=== PATIENT | female | born 1925 | race Caucasian/White ===

== ENCOUNTER 2017-01-03 13:18 | Emergency (ER) | payer OTHER, MEDICARE ==
[2017-01-03 13:30] VITALS: BP 156/69; PULSE 87; TEMP 97.5; BMI 22.3
--- NOTE | 2017-01-03 15:51 | PDOC ---
History of Present Illness - General Chief Complaint: Injury Stated Complaint: FALL/ LACERATION TO NOSE Time Seen by Provider: 01/03/17 14:00 - History of Present Illness Initial Comments: 01/03/17 15:45 CHIEF COMPLAINT: laceration to nose s/p fall HISTORY OF PRESENT ILLNESS: 89 yo F with hx of HTN, hyperthyroidism and parathyroidism presents to fast track with laceration to bridge of nose s/p fall earlier this afternoon. Patient states she tripped on even cement and hit her face. She denies any LOC, dizziness, headache, blurry vision, difficulty speaking or swallowing, and states "I feel just fine, a young man saw me fall and drove me here, but I stopped at home and put away groceries first." No recent travel or sick contacts. PAST MEDICAL HISTORY: as per HPI FAMILY HISTORY: Denies SOCIAL HISTORY: Denies tobacco, alcohol, illicit drug use. ALLERGIES: sulfa, levaquin REVIEW OF SYSTEMS General/Constitutional: Denies fever or chills. Denies weakness, weight change. HEENT: Laceration to bridge of nose. Denies change in vision. Denies ear pain or discharge. Denies sore throat. Cardiovascular: Denies chest pain or shortness of breath. Respiratory: Denies cough, wheezing, or hemoptysis. Gastrointestinal: Denies nausea, vomiting, diarrhea or constipation. Denies rectal bleeding. Genitourinary: Denies dysuria, frequency, or change in urination. Musculoskeletal: Denies joint or muscle swelling or pain. Denies neck or back pain. Skin and breasts: Denies rash or easy bruising. PHYSICAL EXAM General Appearance: Well-appearing, appropriately dressed. No apparent distress. HEENT: 1 inch superficial laceration to bridge of nose. EOMI, PERRLA, normal ENT inspection, normal voice, TMs normal, pharynx normal. No conjunctival pallor. No photophobia, scleral icterus. Neck: Supple. Trachea midline. No tenderness, rigidity, carotid bruit, stridor , lymphadenopathy, or thyromegaly. Respiratory/Chest: Lungs CTAB. Cardiovascular: RRR. S1, S2. No JVD, murmur, bradycardia, tachycardia. Vascular Pulses: Dorsalis-Pedis (R): 2+, Dorsalis-Pedis (L): 2+ Gastrointestinal/Abdominal: Normal bowel sounds. Abdomen soft, non-distended. No tenderness or rebound tenderness. No organomegaly, pulsatile mass, guarding , hernia, hepatomegaly, splenomegaly. Musculoskeletal/Extremities: Normal inspection. FROM of all extremities, normal capillary refill. Pelvis Stable. No CVA tenderness. No tenderness to extremities, pedal edema, swelling, erythema or deformity. Integumentary: See HEENT. Appropriate color, dry, warm. No cyanosis, erythema, jaundice or rash Neurologic: supervisor billposting II-XII intact. Fully oriented, alert. Appropriate mood/affect. Motor strength 5/5. No appreciable EOM palsy, facial droop or sensory deficit.A &Ox3, follow commands, respond appropriately CN2-12: conjugate gaze, pupil round, equal and reactive to light. Visual field full to confrontation. EOMI without nystagmus, pursuit is smooth without saccade. Facial sensation and muscle activation intact bilaterally. Hearing intact bilaterally. Palate elevate symmetrically. Shoulder shrug and neck turn full strength. Tongue protrude midline. Motor: UE and LE strength 5/5 throughout bilaterally. Muscle tone and bulk normal. Sensory: pin prick & temp : BUE & BLE intact and equal bilaterally Vibration & propioception: intact bilaterally at 1st MCP and MTP joints. no sensory level noted on trunk Cerebellar: Rapid-alternating movement with regular rhythm without bradykinesia. [id number]-[id number] and ftyk-bv-mifl intact bilaterally without dysmetria or overshoot Negative Romberg No involuntary movement noted. No pronator drift. No clonus. Past History - Past Medical History Allergies/Adverse Reactions: Allergies Allergy/AdvReac Type Severity Reaction Status Date / Time levofloxacin [From Levaquin] Allergy Rash Verified 01/03/17 13:30 Sulfa (Sulfonamide Allergy Verified 01/03/17 13:30 Antibiotics) Home Medications: Ambulatory Orders Albuterol 0.083% Nebulizer Sully [Ventolin 0.083% Nebulizer Soln -] 1 neb NEB Q4H PRN 06/21/14 Salmeterol/Fluticasone [Advair 100Mcg/50Mcg -] 1 inh PO BID 06/21/14 Simvastatin [Zocor -] 40 mg PO HS 06/21/14 Tiotropium [place] [Spiriva] 1 inh PO DAILY 06/21/14 Levothyroxine [Synthroid -] 75 mcg PO ACBK 06/22/14 Bethanechol Chloride [Urecholine] 50 mg PO QID 12/03/14 Furosemide [Lasix -] 20 mg PO DAILY 12/03/14 Lisinopril [Prinivil -] 2.5 mg PO HS 12/03/14 Mirtazapine [Remeron -] 15 mg PO HS 12/03/14 Pantoprazole Sodium [Protonix -] 40 mg PO DAILY 12/03/14 Potassium Chloride [K-Dur] 20 meq PO ASDIR 12/03/14 Asthma: No COPD: Yes GI Disorders: Yes (HX COLITIS) HTN: Yes Hypercholesterolemia: Yes Thyroid Disease: Yes - Surgical History Orthopedic Surgery: Yes (LT.KNEE/LT.ANKLE) - Immunization History Immunization Up to Date: Yes - Psycho/Social/Smoking Cessation Hx Anxiety: No Suicidal Ideation: No Smoking History: Former smoker Have you smoked in the past 12 months: No If you are a former smoker, when did you quit?: 10 YRS AGO Information on smoking cessation initiated: No Hx Alcohol Use: No Drug/Substance Use Hx: No Substance Use Type: None Hx Substance Use Treatment: No *Physical Exam - Vital Signs Last Vital Signs Temp Pulse Resp BP Pulse Ox 97.5 F L 87 20 156/69 01/03/17 13:25 01/03/17 13:25 01/03/17 13:25 01/03/17 13:25 ED Treatment Course - RADIOLOGY Radiology Studies Ordered: Category Date Time Status HEAD CT WITHOUT CONTRAST [CT] Stat CT Scan 01/03/17 15:14 Ordered Medical Decision Making - Medical Decision Making 01/03/17 15:49 89 yo F with hx of HTN, hypothyroidism, parathyroidism, presents to fast track with laceration to bridge of nose s/p fal. -Laceration repair (see procedure note) Patient is neurolically intact and has no neuro complaints, however, will order head CT to r/o bleed due to patient's age. *DC/Admit/Observation/Transfer Diagnosis at time of Disposition: Laceration - Discharge Dispostion Disposition: HOME Condition at time of disposition: Stable Admit: No - Referrals Referrals: Tami Simon MD [Primary Care Provider] - - Patient Instructions Printed Discharge Instructions: DI for Suture Removal Additional Instructions: As discussed, please keep your site of injury clean and dry for 24 hours. Please return to fast track or to your primary care doctor in 3-5 days for suture removal. If you experience any dizziness, headache, change of vision, difficulty speaking or swallowing, or difficulty walking, please return to the ER.
== END 2017-01-03 16:34 | disposition home or self-care (01) ==
LOC: JERFT 13:18
PROC: 0HQ1XZZ Repair Face Skin, External Approach (ICD-10-PCS; principal; 2017-01-03)
DX: S01.21XA Laceration without foreign body of nose, initial encounter (principal); W18.30XA Fall on same level, unspecified, initial encounter; Y93.9 Activity, unspecified; Y92.410 Unspecified street and highway as the place of occurrence of the external cause; I10 Essential (primary) hypertension; E78.00 Pure hypercholesterolemia, unspecified; E07.9 Disorder of thyroid, unspecified; Z87.891 Personal history of nicotine dependence
CPT/HCPCS: 12011-25; 70450-TC; 99281-25

== ENCOUNTER 2017-01-06 13:12 | Emergency (ER) | payer OTHER, MEDICARE ==
[2017-01-06 13:16] VITALS: BP 161/65; PULSE 83; TEMP 98.3; BMI 22.3
--- NOTE | 2017-01-06 13:37 | PDOC ---
Suture Removal/Wound Check HPI - History of Present Illness Chief Complaint: Suture/Staple Removal(Here) Stated Complaint: STAPLE REMOVAL Time Seen by Provider: 01/06/17 13:21 History Source: Yes: Patient Exam Limitations: Yes: No Limitations [facility] Date of Last ED visit: 02/03/17 - Previous ED Treatment Type of procedure performed on last visit: Yes: Laceration Repair (nose) Tetanus Immunization: Yes: Up to Date Past History - Past Medical History Allergies/Adverse Reactions: Allergies levofloxacin [From Levaquin] Allergy (Verified 01/06/17 13:13) Rash Sulfa (Sulfonamide Antibiotics) Allergy (Verified 01/06/17 13:13) Home Medications: Ambulatory Orders Albuterol 0.083% Nebulizer [place] [Ventolin 0.083% Nebulizer Soln -] 1 neb NEB Q4H PRN 06/21/14 Salmeterol/Fluticasone [Advair 100Mcg/50Mcg -] 1 inh PO BID 06/21/14 Simvastatin [Zocor -] 40 mg PO HS 06/21/14 Tiotropium [place] [Spiriva] 1 inh PO DAILY 06/21/14 Levothyroxine [Synthroid -] 75 mcg PO ACBK 06/22/14 Bethanechol Chloride [Urecholine] 50 mg PO QID 12/03/14 Furosemide [Lasix -] 20 mg PO DAILY 12/03/14 Lisinopril [Prinivil -] 2.5 mg PO HS 12/03/14 Mirtazapine [Remeron -] 15 mg PO HS 12/03/14 Pantoprazole Sodium [Protonix -] 40 mg PO DAILY 12/03/14 Potassium Chloride [K-Dur] 20 meq PO ASDIR 12/03/14 - Immunization History Immunizations Up to Date: Yes - Social History Smoking Status: Former smoker Suture Removal/Wound Check PE - Physical Exam Laceration/Wound Check Symptoms: reports: None Comments: 01/06/17 22:47 pt here for suture removal from the bridge of her nose placed 3 days ago pt has no pain *Review of Systems - Review of Systems Able to Perform ROS?: Yes Constitutional: No: Symptoms Reported Procedures - Additional Procedures Progress: 01/06/17 22:48 5 simple sutures removed from the bridge of the nose skin intact well healed Medical Decision Making - Medical Decision Making 01/06/17 22:48 cc: suture removal from nose placed 3 days ago well healed sutures removed *DC/Admit/Observation/Transfer Diagnosis at time of Disposition: Visit for suture removal - Discharge Dispostion Disposition: HOME Condition at time of disposition: Good - Patient Instructions Printed Discharge Instructions: DI for Suture Removal Additional Instructions: keep clean and dry apply bacitracin once a day
== END 2017-01-06 13:37 | disposition home or self-care (01) ==
LOC: JERFT 13:12
DX: Z48.02 Encounter for removal of sutures (principal)
CPT/HCPCS: 99281-25